=== PATIENT | male | born 1955 | race Caucasian/White ===

== ENCOUNTER 2023-08-16 10:52 | Emergency (ER) | payer OTHER, SELFPAY ==
[2023-08-16 10:53] VITALS: BP 153/94
--- NOTE | 2023-08-16 11:17 | ED.GENMED ---
History of Present Illness
General
Chief Complaint: Male Genito-Urinary Symptoms
Source: patient
Time Seen by Provider: 08/16/23 11:06
Travel History
Have you had any contact with someone who has COVID-19?: No
Do you have any symptoms of coronavirus? Fever > 100 degrees, chills, cough, shortness of breath, sore throat, loss of taste or smell, muscle aches, or headache?: No
History of Present Illness
History of Present Illness:
67-year-old male with past medical history of a bladder stimulator, urinary retention and high cholesterol presenting to the emergency department for evaluation of right-sided testicular swelling that began yesterday, today much worse and more
painful prompting him to come to the ER today. Patient is currently visiting some friends from [place]. Denies any fevers, chills, rigors, nausea, vomiting. Denies any history of similar. States prior to this had a little bit of urinary
frequency but states this is somewhat common for him with the bladder stimulator. No back or flank pain. States had a recent right-sided knee replacement surgery and has been taking Tylenol, ibuprofen and 1/2 tablet of oxycodone as needed for
pain. States he believes he took some Tylenol and ibuprofen that his had given him this morning.
Past History
Past History
ED Past Medical History: Hypercholesterolemia and Other (Urinary retention)
ED Past Surgical History: Orthopedic
Social History
Tobacco: Non-smoker
Alcohol: Occasional
Drug: None
Personal:
Living: with family
Review of Systems
Review of Systems
All Other Systems: ROS reviewed and negative except as documented in HPI and ROS
Phy Exam
Physical Exam
Physical Exam:
GENERAL: Alert , appears very uncomfortable
EYE: clear conjunctiva b/l
HEAD: NCAT
ENT: o/p clr, mmm.
ABDOMEN: Soft, without focal tenderness, no r/g, no cvat
Genitourinary: Moderate right-sided scrotal edema and erythema. There is significant tenderness overlying the epididymis. Positive Prehn's sign. Positive cremasteric reflex bilateral. No urethral discharge or bleeding noted
NEUROLOGICAL: Alert and oriented
SKIN: Warm and dry, skin intact.
MUSCULOSKELETAL: No edema, well perfused.
PSYCH: Normal and appropriate interaction.
Scores
Heart Failure Risk
Heart Failure Risk Score: Not Applicable
Heart Score for Chest Pain Patients
STEMI patient?: Not applicable
Withdrawal Assessment of Alcohol
Withdrawal Assessment Completed?: Not applicable
Course
Orders/Labs/Results
Orders:
Orders
08/16/23 10:57
US Scrotum Urgent
Comment:
Reason For Exam: right testicular swelling
08/16/23 11:12
Oxycodone [Roxicodone] 5 mg PO NOW STA
08/16/23 11:29
Complete Blood Count/With Diff Urgent
Comprehensive Metabolic Panel Urgent
Lactic Acid Urgent
Urinalysis Reflex To Culture Urgent
Date Specimen was Collected: 08/16/23
Time Specimen was Collected: 10:58
Urine Microscopic Reflex Cult Urgent
Blood Culture Urgent
CASSANDRA Source: Blood/Venous
Specimen Description:
Date Specimen was Collected: 08/16/23
Time Specimen was Collected: 10:58
Urine Culture Urgent
CASSANDRA Source: U
Specimen Description:
Date Specimen was Collected: 08/16/23
Time Specimen was Collected: 10:58
08/16/23 12:59
CefTRIAXone [Rocephin] 1,000 mg IV NOW STA
Abnormal Lab Results
08/16/23
11:29
WBC 15.5 H 10^3/uL
(4.8-10.8)
RBC 4.10 L 10^6/uL
(4.70-6.10)
Hgb 12.7 L g/dL
(13.0-18.0)
Hct 38.1 L %
(39.0-52.0)
Plt Count 128 L 10^3/uL
(130-400)
Abs Immat Gran (auto) 0.1 H 10^3/uL
(0-0.05)
Absolute Neuts (auto) 13.6 H 10^3/uL
(1.4-6.5)
Absolute Lymphs (auto) 0.9 L 10^3/uL
(1.2-3.4)
Absolute Monos (auto) 0.8 H 10^3/uL
(0.1-0.6)
Neutrophils % 87.7 H %
(42.2-75.2)
Lymphocytes % 5.8 L %
(20.5-51.1)
BUN 27 H mg/dl
(9-20)
Glucose 110 H mg/dl
(70-99)
Urine Ketones Trace A
(Negative)
Ur Occult Blood Reflex 4+ A
(Negative)
Urine Nitrite (Reflex) Positive A
(Negative)
Leukocyte Esterase Rfl 2+ A
(Negative)
Urine RBC 16-20 A /HPF
(0-2)
Urine WBC (Reflex) 50-60 A /HPF
(0-5)
Urine Bacteria (Reflex) Many A
(Negative)
08/16/23 11:29
08/16/23 11:29
Vital Signs
Initial and Last Documented VS:
Initial Vital Signs
Temp Pulse Resp BP Pulse Ox
98.4 F 103 22 153/94 97
08/16/23 10:53 08/16/23 10:53 08/16/23 10:53 08/16/23 10:53 08/16/23 10:53
Last Documented Vital Signs
Temp Pulse Resp BP Pulse Ox
98.4 F 98 31 171/81 95
08/16/23 10:53 08/16/23 12:45 08/16/23 12:45 08/16/23 12:19 08/16/23 12:45
MDM/Problems Addressed
Differential Diagnosis Includes:
Epididymitis, torsion, urinary tract infection, STI considered although much less likely as patient is not sexually promiscuous
MDM/Problems Addressed:
67-year-old male presenting to the emergency department for evaluation of right-sided testicular/scrotal erythema/edema x 1 day. Significant right-sided scrotal erythema and edema noted. Suspect epididymitis to be most likely diagnosis likely from
a urinary tract infection source. Stat scrotal ultrasound ordered. Labs ordered. Will check a urinalysis. Oxycodone ordered for pain control. Reassessment following.
Chronic conditions affecting care: Other (Chronic urinary retention/bladder stimulator)
*Radiology
Radiology exam reviewed: radiology read reviewed
*Pulse Oximetry
Patient hypoxic: no
*Critical Care Note
Total Time (30-74mins, 75-104mins- exclusive of procedures): Not Applicable
Patient Management
Escalation/DeEscalation of care consider admission/obs:
CT scan consistent with epididymoorchitis. Pain improved with Percocet. Labs show a leukocytosis. Urinalysis with nitrite positive, 2+ leukocyte esterase and 50-60 WBCs. Symptoms seem to be most suggestive of a urinary tract infection cause for
his epididymoorchitis. Given a dose of Rocephin in the ER and prescription for levofloxacin sent to patient's pharmacy. Prescription for Percocet sent as well. Patient is aware of return precautions and otherwise stable for discharge home.
ED Attending Note
-
Portions of this chart may have been created with voice recognition software.� Occasional wrong word or��sound alike� substitutions may have occurred due to the inherent limitations of voice recognition software.
Discharge Plan
Departure
Patient Disposition: Home (Routine Discharge)
Date of Disposition: 08/16/23
Time of Disposition: 13:17
Patient with high blood pressure during this ER visit?: Yes
Discharge Problem:
Acute epididymo-orchitis
Instructions: Epididymitis and Orchitis
Prescriptions:
New
levofloxacin 500 mg tablet
500 mg PO DAILY 10 Days Qty: 10 0RF
oxycodone 5 mg tablet
5 mg PO BID PRN (Reason: Pain) Qty: 10 0RF
Referrals:
PRIVATE,PHYSICIAN [Family Provider] -
Interventions
Interventions:
*Risk Screen - Suicide Last Done: 08/16/23 10:53
*General Assessment Last Done: 08/16/23 10:53
*Neglect/Abuse Screening Last Done: 08/16/23 10:53
ED- Fall Risk Assessment Last Done: 08/16/23 11:27
*ED COVID-19 Vaccine History Last Done: 08/16/23 11:27
ED-Male Genitourinary Assessment Last Done: 08/16/23 11:27
Discharge Date and Time
Print Language: ICELANDIC
[2023-08-16 11:27] VITALS: BMI 37.0
[2023-08-16] MEDS: ROXICODONE 5 MG PO (11:41)
[2023-08-16 11:54] LABS: % Basophils 0.2 % (0-2); % Eosinophils 0.5 % (0-6); % Immature Granulocytes 0.4 % (0-0.5); % Lymphocytes 5.8 % (20.5-51.1); % Monocytes 5.4 % (1.7-9.3); % Neutrophils 87.7 % (42.2-75.2); Absolute Eosinophils 0.1 10^3/uL (0-0.7); Absolute Immature Granulocytes 0.1 10^3/uL (0-0.05); Absolute Lymphocytes 0.9 10^3/uL (1.2-3.4); Absolute Monocytes 0.8 10^3/uL (0.1-0.6); Absolute Neutrophils 13.6 10^3/uL (1.4-6.5); Hematocrit 38.1 % (39.0-52.0); Hemoglobin 12.7 g/dL (13.0-18.0); Mean Corp Hgb Conc. 33.3 g/dL (33.0-37.0); Mean Corpuscular Volume 92.9 fL (80.0-94.0); Mean Platelet Volume 9.3 fL (7.4-10.4); Nucleated Red Blood Cells % 0 % (-); Platelet Count 128 10^3/uL (130-400); White Blood Cell Count 15.5 10^3/uL (4.8-10.8)
[2023-08-16 12:13] LABS: Lactic Acid 1.1 mmol/L (0.7-2.0)
[2023-08-16 12:14] LABS: ALT (SGPT) < 10 U/L (0-50); AST (SGOT) 19 U/L (17-59); Albumin 4.1 g/dl (3.5-5.0); Alkaline Phosphatase 79 U/L (38-126); Blood Urea Nitrogen 27 mg/dl (9-20); Carbon Dioxide 24 mmol/L (22-30); Chloride 105 mmol/L (98-107); Estimated Creatinine Clearance 81 ml/min; Glucose 110 mg/dl (70-99); Potassium 4.3 mmol/L (3.5-5.1); Sodium 139 mmol/L (135-145); Total Bilirubin 0.9 mg/dl (0.2-1.3); Total Protein 6.8 g/dl (6.3-8.2); eGFR > 60.00
[2023-08-16 12:19] VITALS: BP 171/81
[2023-08-16 12:28] LABS: Urine Albumin Trace (Neg - Trace); Urine Bilirubin Negative (Negative); Urine Character Slightly Cloudy (Clear); Urine Color Yellow; Urine Glucose Negative (Negative); Urine Ketone Trace (Negative); Urine Leukocyte 2+ (Negative); Urine Nitrite Positive (Negative); Urine Occult Blood 4+ (Negative); Urine Urobilinogen Negative (Neg - 1+)
[2023-08-16 12:49] LABS: Urine Mucus Few; Urine Red Blood Cell 16-20 /HPF (0-2)
[2023-08-16 12:50] LABS: Urine Bacteria Many (Negative); Urine White Cell 50-60 /HPF (0-5)
[2023-08-16 13:00] VITALS: BP 175/98
[2023-08-16] MEDS: ROCEPHIN 1000 MG IV (13:07)
== END 2023-08-16 13:30 | disposition home or self-care (01) ==
LOC: EMR 10:52
PROVIDERS: Emergency Medicine; EMERGENCY PHYSICIAN Emergency Medicine
DX: N45.3 Epididymo-orchitis (principal); R33.9 Retention of urine, unspecified; R35.0 Frequency of micturition; R03.0 Elevated blood-pressure reading, without diagnosis of hypertension; E78.00 Pure hypercholesterolemia, unspecified; Z96.651 Presence of right artificial knee joint; Z98.890 Other specified postprocedural states
CPT/HCPCS: 76870; 80053; 81003; 81015; 83605; 85025; 87040; 87077; 87086; 87186; 93976; 96374; 99284

== ENCOUNTER 2023-08-16 17:13 | Inpatient (IN) | payer OTHER, SELFPAY ==
[2023-08-16 15:18] VITALS: BP 155/87
--- NOTE | 2023-08-16 15:50 | ED.GENMED ---
History of Present Illness
General
Chief Complaint: Fever
Source: patient and spouse
Time Seen by Provider: 08/16/23 15:19
Travel History
Have you had any contact with someone who has COVID-19?: No
Do you have any symptoms of coronavirus? Fever > 100 degrees, chills, cough, shortness of breath, sore throat, loss of taste or smell, muscle aches, or headache?: No
History of Present Illness
History of Present Illness:
67-year-old male seen earlier today in this emergency department and diagnosed with epididymoorchitis presenting back to the emergency department after getting home and approximately 2 hours later noticed he had a fever of 102.8 and seemed
confused, nauseous with some vomiting. Due to symptoms had contacted the ER back and I requested them come back to the emergency department with concern that patient may be developing urosepsis. Earlier today patient had a leukocytosis of
15,000 but no fever. He received 1 g of Rocephin IV prior to his discharge and was given a prescription for Levaquin but he did not take this upon getting home. No medications for fever were given prior to arrival.
Past History
Past History
ED Past Medical History: Hypercholesterolemia and Other (Urinary retention)
ED Past Surgical History: Orthopedic
Social History
Tobacco: Non-smoker
Alcohol: Occasional
Drug: None
Personal:
Living: with family
Review of Systems
Review of Systems
All Other Systems: ROS reviewed and negative except as documented in HPI and ROS
Phy Exam
Physical Exam
Physical Exam:
GENERAL: Alert , rigors, retching
EYE: conjunctiva clear
Head: Normocephalic atraumatic
NECK: Supple,
ENT: mmm.
LUNGS: no acute respiratory distress
genitourinary: Unchanged from previous
NEUROLOGICAL: Alert and oriented
SKIN: Warm and dry, skin intact.
MUSCULOSKELETAL: well perfused.
PSYCH: Normal and appropriate interaction.
Scores
Heart Failure Risk
Heart Failure Risk Score: Not Applicable
Heart Score for Chest Pain Patients
STEMI patient?: Not applicable
Withdrawal Assessment of Alcohol
Withdrawal Assessment Completed?: Not applicable
Course
Orders/Labs/Results
Orders:
Orders
08/16/23 15:40
0.9% Sodium Chloride 1000 ml [Nss] 1,000 ml IV BOLUS
Acetaminophen [Tylenol] 1,000 mg PO NOW STA
08/16/23 15:45
Lactic Acid Q4H
Comment: CANCEL 2nd LACTIC ACID IF 1st LACTIC ACID IS LESS THAN 2
08/16/23 15:50
Ondansetron Injectable [Zofran] 4 mg IV NOW STA
08/16/23 19:45
Lactic Acid Q4H
Comment: CANCEL 2nd LACTIC ACID IF 1st LACTIC ACID IS LESS THAN 2
Vital Signs
Initial and Last Documented VS:
Initial Vital Signs
Temp Pulse Resp BP Pulse Ox
102.2 F H 125 20 155/87 94
08/16/23 15:18 08/16/23 15:18 08/16/23 15:18 08/16/23 15:18 08/16/23 15:18
Last Documented Vital Signs
Temp Pulse Resp BP Pulse Ox
102.2 F H 125 20 155/87 94
08/16/23 15:18 08/16/23 15:18 08/16/23 15:18 08/16/23 15:18 08/16/23 15:18
MDM/Problems Addressed
Differential Diagnosis Includes:
Urosepsis, already known epididymoorchitis
MDM/Problems Addressed:
67-year-old male seen earlier in the ER today and diagnosed with epididymoorchitis. He returned home and upon getting home developed a fever of 102.8 and was confused per the . On arrival here patient still has a fever of 102.2. Tylenol
ordered. He already had blood cultures and urine cultures done. Lactic acid ordered. Fluids and Zofran ordered. Patient received a dose of Rocephin prior to his discharge. Will notify hospitalist team for admission
Chronic conditions affecting care: Other (Chronic urinary retention)
*Pulse Oximetry
Patient hypoxic: no
*Critical Care Note
Total Time (30-74mins, 75-104mins- exclusive of procedures): Not Applicable
Patient Management
Discussion with other providers: Hospitalist
Escalation/DeEscalation of care consider admission/obs:
Hospitalist team was notified and accepts for continued evaluation and treatment.
ED Attending Note
-
Portions of this chart may have been created with voice recognition software.� Occasional wrong word or��sound alike� substitutions may have occurred due to the inherent limitations of voice recognition software.
Discharge Plan
Departure
Patient Disposition: Admit
Date of Disposition: 08/16/23
Time of Disposition: 15:50
Presentation/result/management discussed w/ accepting MD/DO: Hospitalist
Discharge Problem:
Acute epididymo-orchitis
Prescriptions:
No Action
levofloxacin 500 mg tablet
500 mg PO DAILY 10 Days Qty: 10 0RF
oxycodone 5 mg tablet
5 mg PO BID PRN (Reason: Pain) Qty: 10 0RF
Interventions
Interventions:
*Risk Screen - Suicide Last Done: 08/16/23 15:18
*General Assessment Last Done: 08/16/23 15:18
*Neglect/Abuse Screening Last Done: 08/16/23 15:18
Discharge Date and Time
Print Language: SERBIAN
[2023-08-16 16:05] VITALS: BP 164/81
[2023-08-16] MEDS: TYLENOL 1000 MG PO (16:10)
[2023-08-16] MEDS: NSS 1000 IV ×2 (16:10→18:42)
[2023-08-16] MEDS: ZOFRAN 4 MG IV (16:12)
[2023-08-16 16:31] LABS: Lactic Acid 1.1 mmol/L (0.7-2.0)
--- NOTE | 2023-08-16 16:33 | HPS.HSE ---
Addendum entered and electronically signed by Ander Meade MD 08/16/23 16:47:
Disregard this H&P and see newer version.
Original Note:
Family Physician
-
Family Physician: NOT KNOW UNKNOWN - PT DOES
Chief Complaint
-
right scrotal pain
History of Present Illness
67-year-old male past medical history of Parkinson's disease, overactive bladder status post spinal stimulator, hyperlipidemia, arthritis, right knee replacement, presenting to emergency room for right testicular pain, swelling and redness which
started yesterday. Patient had significantly increased urinary frequency yesterday as well as pain in his right lower back where he has an implanted spinal stimulator for overactive bladder. He was concerned that pain could be related to the
spinal stimulator so he turned it off. He does occasionally get sciatic pain in his right lower back in the same location.
Today he came to the emergency room and was diagnosed with epididymoorchitis presents back to the emergency room after going home 2 hours later he had fever of 102 and was confused with nausea and dry heaving. His contacted the ER and was told
to come back to the emergency room. He denies any abdominal pain.
Medical History
Past Medical History
Past Medical History: Reports Other (Parkinson's disease, overactive bladder status post spinal stimulator, hyperlipidemia, arthritis, right knee replacement, )
Past Surgical History: Reports Orthopedic (right knee replacment )
Social History
Tobacco: Non-smoker
Alcohol: Occasional
Drug: None
Family History
Family History: Not pertinent
Allergies / Home Medications
Allergies reflects when Allergies were last updated in [employer].
Home Medications with original date entered in [employer]
Allergy/Medication List:
Allergies
Allergy/AdvReac Type Severity Reaction Status Date / Time
No Known Allergies Allergy Verified 08/16/23 15:21
Home Medications
acetaminophen 650 mg tablet,extended release (Tylenol 8 Hour) 650 mg PO [id number] PRN mild pain 08/16/23
carbidopa 25 mg-levodopa 100 mg tablet 2 tab PO TID 08/16/23
finasteride 5 mg tablet 5 mg PO DAILY 08/16/23
ibuprofen 200 mg tablet 200 mg PO Q6HPRN PRN mild pain 08/16/23
ipratropium bromide 21 mcg (0.03 %) nasal spray 2 spray DAILY 08/16/23
omeprazole 40 mg capsule,delayed release 40 mg PO DAILY 08/16/23
oxycodone 5 mg tablet 2.5 mg PO HS 08/16/23
pramipexole 1 mg tablet 1 mg PO TID 08/16/23
rasagiline 1 mg tablet 1 mg PO DAILY 08/16/23
rosuvastatin 5 mg tablet 5 mg PO DAILY 08/16/23
tadalafil 5 mg tablet 5 mg PO HS 08/16/23
tamsulosin 0.4 mg capsule 0.8 mg PO HS 08/16/23
Review of Systems
-
History Source: Patient
A 12 point ROS was completed and negative except as noted: Yes
Constitutional: Reports No Symptoms
EENT: Reports No Symptoms
Respiratory: Reports No Symptoms
Cardiac: Reports No Symptoms
Abdomen/GI: Reports No Symptoms
: Reports See HPI
Musculoskeletal: Reports No Symptoms
Skin: Reports No Symptoms
Neurological: Reports No Symptoms
Endocrine: Reports No Symptoms
Hematologic/Lymphatic: Reports No Symptoms
Psych: Reports No Symptoms
Physical Exam
Vital Signs
Vital Signs
Temp Pulse Resp BP Pulse Ox
102.2 F H 125 20 155/87 94
08/16/23 15:18 08/16/23 15:18 08/16/23 15:18 08/16/23 15:18 08/16/23 15:18
Physical Exam
General: Well Developed, Well Nourished and No Apparent Distress
HEENT: NormoCephalic, Moist mucous membranes and Atraumatic
Respiratory: Clear
Cardiac: S1/S2 and Regular Rhythm; No Murmur or Rub
GI: Soft, Non Tender, Non Distended and Normal Bowel Sounds; No Organomegaly
Rectal: Deferred by Provider
Genito-urinary: Other (right scrotal swelling, erythema and tenderness )
Musculoskeletal: No Clubbing, No Cyanosis and No Edema
Skin: No Rash
Neuro: Nonfocal/grossly intact
Laboratory Results
-
Laboratory Results
Lactic Acid 1.1 mmol/L (0.7-2.0) 08/16/23 16:07
Data Reviewed
-
Lab Data: Labs Reviewed by me
Old Records: Reviewed
Impression/Plan
-
IMPRESSION:
PLAN:
# Sepsis (fever, tachycardia, leukocytosis) secondary to right-sided epididymoorchitis
-Scrotal ultrasound showed findings consistent with right-sided epididymoorchitis, bilateral striated testicular echotexture which can be seen with orchitis may be related interstitial fibrosis
-Urine, blood cultures pending
-check urine gonorrhea/chlamydia
-IV fluids
-Received ceftriaxone in the ER previous
-Continue Levaquin
-Zofran, Dilaudid for pain as needed
# Right lower back pain possibly musculoskeletal versus pyelonephritis versus
-Given right lower back pain will check CT abdomen pelvis to evaluate for potential pyelonephritis, placement of the spinal stimulator
Left-sided moderate varicocele
Parkinson's disease
Overactive bladder status post spinal stimulator
Hyperlipidemia
Osteoarthritis
Full code
DVT prophylaxis heparin
Regular diet
--- NOTE | 2023-08-16 16:44 | HPS.HSE ---
Family Physician
-
Family Physician: NOT KNOW UNKNOWN - PT DOES
Chief Complaint
-
right scrotal swelling
History of Present Illness
67-year-old male past medical history of Parkinson's disease, overactive bladder status post spinal stimulator, hyperlipidemia, arthritis, GERD, right knee replacement, presenting to emergency room for right testicular pain, swelling and redness
which started yesterday. Patient had significantly increased urinary frequency yesterday as well as pain in his right lower back where he has an implanted spinal stimulator for overactive bladder. He was concerned that pain could be related to the
spinal stimulator so he turned it off. He does occasionally get sciatic pain in his right lower back in the same location.
Today he came to the emergency room and was diagnosed with epididymoorchitis presents back to the emergency room after going home 2 hours later he had fever of 102 and was confused with nausea and dry heaving. His contacted the ER and was told
to come back to the emergency room. He denies any abdominal pain.
Medical History
Past Medical History
Past Medical History: Reports Other (Parkinson's disease, overactive bladder status post spinal stimulator, hyperlipidemia, arthritis, GERD, right knee replacement)
Past Surgical History: Reports None and Other (R hip replacement )
Social History
Tobacco: Non-smoker
Alcohol: Occasional
Drug: None
Family History
Family History: Not pertinent
Allergies / Home Medications
Allergies reflects when Allergies were last updated in [facility].
Home Medications with original date entered in [facility]
Allergy/Medication List:
Allergies
Allergy/AdvReac Type Severity Reaction Status Date / Time
No Known Allergies Allergy Verified 08/16/23 15:21
Home Medications
acetaminophen 650 mg tablet,extended release (Tylenol 8 Hour) 650 mg PO [id number] PRN mild pain 08/16/23
carbidopa 25 mg-levodopa 100 mg tablet 2 tab PO TID 08/16/23
finasteride 5 mg tablet 5 mg PO DAILY 08/16/23
ibuprofen 200 mg tablet 200 mg PO Q6HPRN PRN mild pain 08/16/23
ipratropium bromide 21 mcg (0.03 %) nasal spray 2 spray DAILY 08/16/23
omeprazole 40 mg capsule,delayed release 40 mg PO DAILY 08/16/23
oxycodone 5 mg tablet 2.5 mg PO HS 08/16/23
pramipexole 1 mg tablet 1 mg PO TID 08/16/23
rasagiline 1 mg tablet 1 mg PO DAILY 08/16/23
rosuvastatin 5 mg tablet 5 mg PO DAILY 08/16/23
tadalafil 5 mg tablet 5 mg PO HS 08/16/23
tamsulosin 0.4 mg capsule 0.8 mg PO HS 08/16/23
Review of Systems
-
History Source: Patient
A 12 point ROS was completed and negative except as noted: Yes
Constitutional: Reports No Symptoms
EENT: Reports No Symptoms
Respiratory: Reports No Symptoms
Cardiac: Reports No Symptoms
Abdomen/GI: Reports No Symptoms
: Reports See HPI
Musculoskeletal: Reports No Symptoms
Skin: Reports No Symptoms
Neurological: Reports No Symptoms
Endocrine: Reports No Symptoms
Hematologic/Lymphatic: Reports No Symptoms
Psych: Reports No Symptoms
Physical Exam
Vital Signs
Vital Signs
Temp Pulse Resp BP Pulse Ox
102.2 F H 125 20 155/87 94
08/16/23 15:18 08/16/23 15:18 08/16/23 15:18 08/16/23 15:18 08/16/23 15:18
Physical Exam
General: Well Developed, Well Nourished and No Apparent Distress
HEENT: NormoCephalic, Moist mucous membranes and Atraumatic
Respiratory: Clear
Cardiac: S1/S2 and Regular Rhythm; No Murmur or Rub
GI: Soft, Non Tender, Non Distended and Normal Bowel Sounds; No Organomegaly
Rectal: Deferred by Provider
Genito-urinary: Other (right scrotal swelling, erythema and tenderness )
Musculoskeletal: No Clubbing, No Cyanosis and No Edema
Skin: No Rash
Neuro: Nonfocal/grossly intact
Laboratory Results
-
Laboratory Results
Lactic Acid 1.1 mmol/L (0.7-2.0) 08/16/23 16:07
Data Reviewed
-
Lab Data: Labs Reviewed by me
Old Records: Reviewed
Impression/Plan
-
IMPRESSION:
PLAN:
# Sepsis (fever, tachycardia, leukocytosis) secondary to right-sided epididymoorchitis
-Scrotal ultrasound showed findings consistent with right-sided epididymoorchitis, bilateral striated testicular echotexture which can be seen with orchitis may be related interstitial fibrosis
-Urine, blood cultures pending
-check gonorrhea/chlamydia pain
-IV fluids
-Received ceftriaxone in the ER previous
-Continue Levaquin
-Zofran, Dilaudid for pain as needed
# Right lower back pain possibly musculoskeletal versus pyelonephritis versus
-Given right lower back pain will check CT abdomen pelvis to evaluate for potential pyelonephritis, placement of the spinal stimulator
History of right-sided sciatica
Left-sided moderate varicocele
Parkinson's disease
-Continue carbidopa-levodopa, Plavix
Overactive bladder status post spinal stimulator
-Continue tamsulosin, tadalafil, finasteride
Hyperlipidemia
-Continue statin
GERD
-Continue omeprazole
Osteoarthritis
Full code
DVT prophylaxis heparin
Regular diet
[2023-08-16 16:49] VITALS: BMI 35.0
[2023-08-16 18:14] VITALS: BMI 34.4
[2023-08-16 18:15] VITALS: BP 155/99
[2023-08-16] MEDS: TYLENOL 650 MG PO (19:20)
[2023-08-16] MEDS: LEVAQUIN 150 IV (19:53)
[2023-08-16] MEDS: HEPARIN 5000 UNITS SC (19:53)
[2023-08-16] MEDS: SINEMET 25-100 2 TABLET PO (21:35)
[2023-08-16] MEDS: MIRAPEX, GENERIC 1 MG PO (21:35)
[2023-08-16] MEDS: FLOMAX 0.800000000000000044 MG PO (21:35)
[2023-08-16 23:40] VITALS: BP 114/65
[2023-08-17] MEDS: NSS 1000 IV ×3 (05:48→23:33)
[2023-08-17] MEDS: ZOFRAN 4 MG IV ×2 (05:51→19:47)
[2023-08-17 07:00] VITALS: BP 134/61
[2023-08-17 07:21] LABS: Hematocrit 33.3 % (39.0-52.0); Hemoglobin 10.9 g/dL (13.0-18.0); Mean Corp Hgb Conc. 32.7 g/dL (33.0-37.0); Mean Corpuscular Volume 94.6 fL (80.0-94.0); Mean Platelet Volume 10.1 fL (7.4-10.4); Nucleated Red Blood Cells % 0 % (-); Platelet Count 105 10^3/uL (130-400); Red Blood Cell Count 3.52 10^6/uL (4.70-6.10); Red Cell Dist. Width 14.3 % (11.5-14.5); White Blood Cell Count 20.1 10^3/uL (4.8-10.8)
[2023-08-17] MEDS: RASAGILINE MESYLATE 1 MG PO (08:02)
[2023-08-17] MEDS: MIRAPEX, GENERIC 1 MG PO ×3 (08:03→21:17)
[2023-08-17] MEDS: PROTONIX 40 MG PO (08:03)
[2023-08-17] MEDS: HEPARIN 5000 UNITS SC (08:03)
[2023-08-17] MEDS: CRESTOR 5 MG PO (08:03)
[2023-08-17] MEDS: PROSCAR 5 MG PO (08:03)
[2023-08-17] MEDS: SINEMET 25-100 2 TABLET PO ×2 (08:03→19:43)
--- NOTE | 2023-08-17 08:03 | W.PN.HOSP.TC ---
Today's Communication/Plan
-
see bold
Assessment / Plan
Assessment / Plan
HPI: 67-year-old male past medical history of Parkinson's disease, overactive bladder status post spinal stimulator, hyperlipidemia, arthritis, GERD, right knee replacement, presenting to emergency room for right testicular pain, swelling and
redness which started yesterday. Patient had significantly increased urinary frequency yesterday as well as pain in his right lower back where he has an implanted spinal stimulator for overactive bladder. He was concerned that pain could be
related to the spinal stimulator so he turned it off. He does occasionally get sciatic pain in his right lower back in the same location.
Today he came to the emergency room and was diagnosed with epididymoorchitis presents back to the emergency room after going home 2 hours later he had fever of 102 and was confused with nausea and dry heaving. His contacted the ER and was told
to come back to the emergency room. He denies any abdominal pain.
# Sepsis (fever, tachycardia, leukocytosis) secondary to right-sided epididymoorchitis
-Scrotal ultrasound showed findings consistent with right-sided epididymoorchitis, bilateral striated testicular echotexture which can be seen with orchitis may be related interstitial fibrosis
-Blood cultures negative to date, urine cultures growing gram-negative rods, follow-up on final urine cultures
-Gonorrhea/chlamydia neg
-Continue IV levofloxacin day 2, consult urology for follow-up
-Zofran, oxy/Dilaudid for pain as needed
# Right lower back pain possibly musculoskeletal versus pyelonephritis versus
-likely musculoskeletal
-CT abdomen pelvis neg pyelonephritis
History of right-sided sciatica
Left-sided moderate varicocele
Parkinson's disease
-Continue carbidopa-levodopa, Plavix
Overactive bladder status post spinal stimulator
-Continue tamsulosin, tadalafil, finasteride
Hyperlipidemia
-Continue statin
GERD
-Continue omeprazole
Obesity due to excess calories
� Affects all aspects of care
Osteoarthritis
DVT prophylaxis�subcu Lovenox
Full code
Updated at bedside 08/16
Total time spent to see the patient on the floor, examine the patient, review data and lab results, discuss treatment plan with patient, nursing staff around 50 minutes.
Physical Exam
General: Obese, no acute distress
HEENT: Normocephalic, Atraumatic, EOMI, MMM
Respiratory: Clear to Auscultation bilaterally
Cardiac: Normal S1/S2, Regular Rate and Rhythm
GI: Soft, Nontender, Nondistended, Normal Bowel Sounds
: Right testes diffusely swollen, erythematous, edematous, tender to the touch
Extremities: No Clubbing, Cyanosis, or Edema
Neuro: Nonfocal/Grossly Intact
Anticipated Discharge: > 48 hours
Subjective/Interval History
-
Date of Service: August 17, 2023
Patient reports feeling much better. His right scrotal pain, swelling, and erythema is much improved. No fever, no vomiting.
Objective Data
-
Labs:
Laboratory Results
08/17/23
05:20
WBC 20.1 H
Hgb 10.9 L
Hct 33.3 L
Plt Count 105 L
Sodium Pending
Potassium Pending
Chloride Pending
Carbon Dioxide Pending
BUN Pending
Creatinine Pending
Glucose Pending
Calcium Pending
Total Bilirubin Pending
AST Pending
ALT Pending
Alkaline Phosphatase Pending
Vital Signs:
Vital Signs
Temp Pulse Resp BP Pulse Ox
99.2 F 101 16 114/65 96
08/17/23 03:44 08/16/23 23:40 08/16/23 23:40 08/16/23 23:40 08/16/23 23:40
I&O
08/16/23 08/17/23 08/18/23
06:59 06:59 06:59
Intake Total 1780 / 1780
Output Total 750 / 750
Balance 1030 / 1030
[2023-08-17 08:08] LABS: ALT (SGPT) < 10 U/L (0-50); Albumin 3.2 g/dl (3.5-5.0); Alkaline Phosphatase 72 U/L (38-126); Blood Urea Nitrogen 21 mg/dl (9-20); Carbon Dioxide 22 mmol/L (22-30); Estimated Creatinine Clearance 86 ml/min; Glucose 106 mg/dl (70-99); Potassium 4.3 mmol/L (3.5-5.1); Sodium 135 mmol/L (135-145); Total Bilirubin 0.7 mg/dl (0.2-1.3); Total Protein 5.5 g/dl (6.3-8.2); eGFR > 60.00
[2023-08-17] MEDS: MOTRIN 200 MG PO (08:09)
[2023-08-17 08:22] LABS: AST (SGOT) 22 U/L (17-59); Calcium 7.9 mg/dl (8.4-10.2); Chloride 106 mmol/L (98-107)
[2023-08-17] MEDS: MOTRIN 600 MG PO ×3 (09:23→21:17)
[2023-08-17 09:46] LABS: Absolute Neutrophils -Man Diff 16.8 10^3/uL (1.4-6.5); Band Neutrophils 14 % (0-3); Lymphocytes 10 % (20-51); Monocytes 6 % (2-9); Normal RBC Morphology Yes; Platelets Checked Yes; Segmented Neutrophils 70 % (42-75); Total Cells Counted 100
--- NOTE | 2023-08-17 10:13 | CM ---
CM met with pt and spouse at bedside.
Pt is from [place]. They are traveling across country, staying with friends/family. They are currently staying with friends in [place] and plan to travel next to [place].
Pt does have a PCP in [place], outside of [place] named Daniel Payton and follows with a neurologist there.
For prescriptions, pt will use the [facility] in [place]. Reports having a + prescription plan.
Prior to admission pt independent with ambulation and ADL's. Uses no DME. Drives.
Pt currently is on 1L oxygen [place] and is hopeful to be weaned off prior to dc.
Anticipated discharge dispo is home no needs. CM to watch for oxygen needs.
--- NOTE | 2023-08-17 10:50 | W.PN.URO.CBU ---
Today's Communication / Plan
-
Await urine and blood cultures
Continue levofloxacin
Scrotal elevation with ice
Assessment / Plan
-
Right epididymorchitis
Leukocytosis
Fever
Diagnosis
-
Date of Service: August 17, 2023
-
Patient Diagnosis:
Right epididymitis
Fever
Leukocytosis
Urinalysis c/w UTI
Neurogenic bladder with OAB s/p Interstim placement
Bilateral parapelvic cysts
Subjective
-
Feels better now that fever has broken
No dysuria
No gross hematuria
No flank or SP pain
Right testis discomfort persists
Objective
-
Vital Signs
Temp Pulse Resp BP Pulse Ox
97.6 F 101 17 134/61 97
08/17/23 07:00 08/17/23 07:00 08/17/23 07:00 08/17/23 07:00 08/17/23 07:00
Intake and Output
08/16/23 08/17/23 08/18/23
06:59 06:59 06:59
Intake Total 1780 / 1780
Output Total 750 / 750
Balance 1030 / 1030
Intake:
Oral fluids 480 / 480
IV fluids (Total) 1050 / 1050
IV piggybacks 250 / 250
Output:
Urine, Voided 750 / 750
Laboratory Results
08/17/23 05:20
08/17/23 05:20
CT scan: bilateral parapelvic cysts
Scrotal US: right epididymal inflammation, left varicocele
Review of Systems
-
Constitutional: Fever
Respiratory: No Symptoms
Cardiac: No Symptoms
Abdomen/GI: No Symptoms
: No Symptoms
Physical Exam
-
General - well nourished, no acute distress
Abdomen - soft, non-tender
Genitalia - right scrotal wall edema w/o crepitus or abscess
Skin - warm & dry with no rash
Counseling
-
Await culture results
[2023-08-17] MEDS: NSS IV (14:16)
[2023-08-17 15:00] VITALS: BP 136/68
[2023-08-17] MEDS: TYLENOL 650 MG PO ×2 (15:01→19:42)
[2023-08-17] MEDS: SINEMET 25-100 PO ×2 (15:01)
[2023-08-17] MEDS: LEVAQUIN 150 IV (17:53)
[2023-08-17] MEDS: LOVENOX 40 MG SC (17:54)
[2023-08-17] MEDS: FLOMAX 0.800000000000000044 MG PO (21:17)
[2023-08-17 23:57] VITALS: BP 133/82
[2023-08-18] MEDS: SINEMET 25-100 2 TABLET PO ×2 (05:35→11:01)
[2023-08-18 06:28] LABS: Hematocrit 32.1 % (39.0-52.0); Hemoglobin 10.6 g/dL (13.0-18.0); Mean Corpuscular Volume 93.9 fL (80.0-94.0); Platelet Count 111 10^3/uL (130-400); Red Blood Cell Count 3.42 10^6/uL (4.70-6.10); Red Cell Dist. Width 14.1 % (11.5-14.5); White Blood Cell Count 15.5 10^3/uL (4.8-10.8)
[2023-08-18 06:49] LABS: Blood Urea Nitrogen 25 mg/dl (9-20); Calcium 8.1 mg/dl (8.4-10.2); Carbon Dioxide 24 mmol/L (22-30); Chloride 109 mmol/L (98-107); Estimated Creatinine Clearance 86 ml/min; Glucose 91 mg/dl (70-99); Magnesium 2.3 mg/dl (1.6-2.3); Potassium 4.3 mmol/L (3.5-5.1); Sodium 140 mmol/L (135-145); eGFR > 60.00
[2023-08-18] MEDS: ZOFRAN 4 MG IV (07:24)
[2023-08-18 07:30] VITALS: BP 147/91
[2023-08-18] MEDS: PROTONIX 40 MG PO (08:02)
[2023-08-18] MEDS: MIRAPEX, GENERIC 1 MG PO (08:02)
[2023-08-18] MEDS: CRESTOR 5 MG PO (08:03)
[2023-08-18] MEDS: PROSCAR 5 MG PO (08:03)
[2023-08-18] MEDS: RASAGILINE MESYLATE 1 MG PO (08:03)
[2023-08-18] MEDS: MOTRIN 600 MG PO (08:03)
--- NOTE | 2023-08-18 08:57 | W.PN.HOSP.TC ---
Today's Communication/Plan
-
Cleared by urology for discharge today
Assessment / Plan
Assessment / Plan
HPI: 67-year-old male past medical history of Parkinson's disease, overactive bladder status post spinal stimulator, hyperlipidemia, arthritis, GERD, right knee replacement, presenting to emergency room for right testicular pain, swelling and
redness which started yesterday. Patient had significantly increased urinary frequency yesterday as well as pain in his right lower back where he has an implanted spinal stimulator for overactive bladder. He was concerned that pain could be
related to the spinal stimulator so he turned it off. He does occasionally get sciatic pain in his right lower back in the same location.
Today he came to the emergency room and was diagnosed with epididymoorchitis presents back to the emergency room after going home 2 hours later he had fever of 102 and was confused with nausea and dry heaving. His contacted the ER and was told
to come back to the emergency room. He denies any abdominal pain.
# Sepsis (fever, tachycardia, leukocytosis) secondary to right-sided epididymoorchitis
-Scrotal ultrasound showed findings consistent with right-sided epididymoorchitis, bilateral striated testicular echotexture which can be seen with orchitis may be related interstitial fibrosis
-Blood cultures negative to date, urine cultures growing E. coli, sensitive to Bactrim
-Gonorrhea/chlamydia neg
-Status post levofloxacin IV for 2 days
-Medically stable and cleared by urology for discharge on Bactrim for 14 more days
-Continue to ice and elevate the scrotum
# Right lower back pain possibly musculoskeletal versus pyelonephritis versus
-likely musculoskeletal
-CT abdomen pelvis neg pyelonephritis
History of right-sided sciatica
Left-sided moderate varicocele
Parkinson's disease
-Continue carbidopa-levodopa, Plavix
Overactive bladder status post spinal stimulator
-Continue tamsulosin, tadalafil, finasteride
Hyperlipidemia
-Continue statin
GERD
-Continue omeprazole
Obesity due to excess calories
� Affects all aspects of care
Osteoarthritis
DVT prophylaxis�subcu Lovenox
Full code
Updated at bedside 08/17
Physical Exam
General: Obese, no acute distress
HEENT: Normocephalic, Atraumatic, EOMI, MMM
Respiratory: Clear to Auscultation bilaterally
Cardiac: Normal S1/S2, Regular Rate and Rhythm
GI: Soft, Nontender, Nondistended, Normal Bowel Sounds
: Right testes diffusely swollen, erythematous, edematous, tender to the touch
Extremities: No Clubbing, Cyanosis, or Edema
Neuro: Nonfocal/Grossly Intact
Anticipated Discharge: Today
Subjective/Interval History
-
Date of Service: August 18, 2023
Patient reports feeling much better. No recurrence of fever. His right testicular pain and swelling continue to improve. No chest pain, no vomiting.
Objective Data
-
Labs:
Laboratory Results
08/18/23
05:29
WBC 15.5 H
Hgb 10.6 L
Hct 32.1 L
Plt Count 111 L
Sodium 140
Potassium 4.3
Chloride 109 H
Carbon Dioxide 24
BUN 25 H
Creatinine 1.0
Glucose 91
Calcium 8.1 L
Vital Signs:
Vital Signs
Temp Pulse Resp BP Pulse Ox
97.7 F 88 16 147/91 94
08/18/23 07:30 08/18/23 07:30 08/18/23 07:30 08/18/23 07:30 08/18/23 07:30
I&O
08/17/23 08/18/23 08/19/23
06:59 06:59 06:59
Intake Total 1780 / 1780 3605 / 3605
Output Total 750 / 750 1175 / 1175
Balance 1030 / 1030 2430 / 2430
--- NOTE | 2023-08-18 09:47 | W.PN.URO.CBU ---
Today's Communication / Plan
-
Cleared for discharge to complete 2 weeks Bactrim
Assessment / Plan
-
Right epididymorchitis: improved
Leukocytosis: improved
Fever: resolved
Diagnosis
-
Date of Service: August 18, 2023
-
Patient Diagnosis:
Right epididymitis
Fever
Leukocytosis
Urinalysis c/w UTI: E. coli in urine. No bacteremia
Neurogenic bladder with OAB s/p Interstim placement
Bilateral parapelvic cysts
Subjective
-
Feels well
No fever
No dysuria
Objective
-
Vital Signs
Temp Pulse Resp BP Pulse Ox
97.7 F 88 16 147/91 94
08/18/23 07:30 08/18/23 07:30 08/18/23 07:30 08/18/23 07:30 08/18/23 07:30
Intake and Output
08/17/23 08/18/23 08/19/23
06:59 06:59 06:59
Intake Total 1780 / 1780 3605 / 3605
Output Total 750 / 750 1175 / 1175
Balance 1030 / 1030 2430 / 2430
Intake:
Oral fluids 480 / 480 1170 / 1170
IV fluids (Total) 1050 / 1050 1085 / 1085
IV piggybacks 250 / 250 1350 / 1350
Output:
Urine, Voided 750 / 750 1175 / 1175
Other:
Number of approximated SMALL 1
amounts of urine
Number of approximated MODERATE 1
amounts of urine
Laboratory Results
08/18/23 05:29
08/18/23 05:29
Review of Systems
-
Constitutional: Fatigue
Respiratory: No Symptoms
Cardiac: No Symptoms
Abdomen/GI: No Symptoms
: No Symptoms
Physical Exam
-
General - well nourished, no acute distress
Abdomen - soft, non-tender, no CVAT
Genitalia - diminished scrotal edema and tenderness. No erythema, fluctuance or crepitus
Counseling
-
Cleared for discharge on 2 weeks Bactrim
Continue ice and elevation
Discussed with Dr. Aviles
[2023-08-18] MEDS: TYLENOL 650 MG PO (11:01)
--- NOTE | 2023-08-18 11:08 | W.DCSUMMARY ---
Discharge Summary
Discharge Data
Date of Admission: 08/16/23
Date of Discharge: 08/18/23
-
Pending Results: No
Hospital Course
Discharge diagnosis:
Sepsis
Right epididymoorchitis
Musculoskeletal right lower back pain
History of right-sided sciatica
Left-sided varicocele
Parkinson's disease
Overactive bladder status post spinal stimulator
Hyperlipidemia
Gastroesophageal reflux disease
Obesity due to excess calories
Osteoarthritis
Consults: Urology
CT abdomen and pelvis:
There are bilateral parapelvic renal cysts measuring up to 6 cm
The 6 cm left parapelvic renal cyst is associated with displacement of the proximal left ureter without associated obstruction.
Scrotal ultrasound:
1. Findings as above which are most consistent with right-sided epididymoorchitis.
2. There is bilateral striated testicular echotexture. While this can be seen in association with orchitis, given bilateral finding may be related to interstitial fibrosis. Left testicle is also slightly atrophic, suggesting possible prior injury
or infection.
3. Left-sided moderate varicocele.
Hospital course:
67-year-old male with a past medical history of Parkinson's disease, overactive bladder status post spinal stimulator, gastroesophageal reflux disease, osteoarthritis, and obesity was admitted for sepsis secondary to right-sided epididymoorchitis.
Patient had fever and leukocytosis. He was seen in conjunction with urology. He was treated with IV levofloxacin. His urine studies were negative for gonorrhea and chlamydia. CT abdomen and pelvis were negative for pyelonephritis.
Urine cultures grew out E. coli, sensitive to fluoroquinolones, Bactrim. Patient's right scrotal pain, edema, and erythema improved. His fever resolved. His leukocytosis improved. He is medically stable and cleared by urology for discharge on
Bactrim double strength tablets twice a day for 14 more days. He needs to follow-up with his primary care doctor in 1 week.
Disposition: Home self-care
Discharge planning: Required 36 minutes
Discharge Plan
-
Patient Disposition: Home (Routine Discharge)
Discharge Diagnosis/Procedures: Sepsis, right epididymorchitis
Condition: Fair
Diet: Low Fat and Low Cholesterol
Activity: As tolerated
Activity Restrictions/Additional Instructions:
Rest, drink plenty of fluids. Continue to ice and elevate your scrotum.
Go to the nearest urgent care center or ER if you have any fever, or worsening of your scrotal pain.
Referrals:
UNKNOWN - PT DOES,NOT KNOW [Family Provider] -
Prescriptions:
New
ibuprofen 600 mg Tablet
600 mg PO TID Qty: 90 0RF
sulfamethoxazole-trimethoprim [Bactrim DS] 800-160 mg tablet
1 tab PO BID 14 Days Qty: 28 0RF
Continued
pramipexole 1 mg Tablet
1 mg PO TID
omeprazole 40 mg Capsule,Delayed Release(Dr/Ec)
40 mg PO DAILY
acetaminophen [Tylenol 8 Hour] 650 mg Tablet Extended Release
650 mg PO [id number] PRN (Reason: mild pain)
tamsulosin 0.4 mg Capsule
0.8 mg PO HS
carbidopa-levodopa 25-100 mg Tablet
2 tab PO TID
ipratropium bromide 21 mcg (0.03 %) [place],Non-Aerosol
2 spray DAILY
Rx Instructions:
One spray to each buccal mucosa
finasteride 5 mg Tablet
5 mg PO DAILY
rosuvastatin 5 mg Tablet
5 mg PO DAILY
tadalafil 5 mg Tablet
5 mg PO HS
rasagiline 1 mg Tablet
1 mg PO DAILY
oxycodone 5 mg tablet
2.5 mg PO HS
Discontinued
ibuprofen 200 mg Tablet
200 mg PO Q6HPRN PRN (Reason: mild pain)
Discharge Orders:
Discharge Patient (As Directed); Ordered 08/18/23
Ordered By: David Aviles
Discharge Date and Time
Discharge Date/Time: 08/18/23 12:57
Print Language: KITTITIAN
[2023-08-18] MEDS: BACTRIM DS 800 MG/160 MG 1 TABLET PO (11:37)
[2023-08-18 11:55] VITALS: BP 131/82
[2023-08-18 12:45] VITALS: BP 141/88; PULSE 83; O2SAT 95
== END 2023-08-18 12:57 | disposition home or self-care (01) | DRG 872 ==
LOC: 3 WEST ACU 17:13
PROVIDERS: Physician Assistant Medical; ADMITTING PHYSICIAN Hospitalist; ATTENDING PHYSICIAN Family Medicine; CONSULT PHYSICIAN Specialist; EMERGENCY PHYSICIAN Student in an Organized Health Care Education/Training Program
DX: A41.9 Sepsis, unspecified organism (principal); N45.3 Epididymo-orchitis; I86.1 Scrotal varices; G20.A1 Parkinson's disease without dyskinesia, without mention of fluctuations; K21.9 Gastro-esophageal reflux disease without esophagitis; N31.9 Neuromuscular dysfunction of bladder, unspecified; E78.00 Pure hypercholesterolemia, unspecified; E66.09 Other obesity due to excess calories; Z68.34 Body mass index [BMI] 34.0-34.9, adult
CPT/HCPCS: 74177; 80048; 80053; 83605; 83735; 85025; 85027; 87491; 87591; 96361; 96374; 97161; 99284; Q9967